=== PATIENT | female | born 1995 | race Caucasian/White ===

== ENCOUNTER 2019-04-10 08:24 | Emergency (ER) | payer SELFPAY ==
[~2019-04-10] VITALS: Ht 160 cm; Wt 87.6 kg
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
--- NOTE | 2019-04-10 09:07 | NUR ---
ermd at bedside
--- NOTE | 2019-04-10 09:21 | NUR ---
pt left to xray
--- NOTE | 2019-04-10 09:48 | NUR ---
PT RETURNED FROM XRAY
--- NOTE | 2019-04-10 10:45 | NUR ---
PT RESTING IN BED. NO NEW NEEDS AT THIS TIME.
[2019-04-10 11:42] VITALS: BP 129/86
== END 2019-04-10 11:43 | disposition home or self-care (01) ==
LOC: MED 08:24
DX: M25.521 Pain in right elbow (principal); M54.9 Dorsalgia, unspecified; M25.571 Pain in right ankle and joints of right foot; V49.49XA Driver injured in collision with other motor vehicles in traffic accident, initial encounter; Y93.89 Activity, other specified; Y92.411 Interstate highway as the place of occurrence of the external cause; Y99.8 Other external cause status
CPT/HCPCS: 71046; 72072; 73080; 73610; 81002; 81025; 99283